=== PATIENT | male | born 1975 | race Two or more races ===

== ENCOUNTER 2025-08-11 19:24 | Emergency (ER) | payer OTHER ==
[~2025-08-11] VITALS: Ht 188 cm; Wt 113.4 kg
[2025-08-11] MEDS ORDERED: 0.9 % SODIUM CHLORIDE 1,000 ML IV SCH (21:00)
[2025-08-11] MEDS ORDERED: ACETAMINOPHEN 500 MG GEL..CAP PO ONE (21:00)
[2025-08-11] MEDS ORDERED: ORPHENADRINE CITRATE 30 MG/ML AMPUL IM ONE (21:00)
[2025-08-11] MEDS ORDERED: MORPHINE SULFATE 4 MG/ML CARTRIDGE IV ONE (21:15)
[2025-08-11] MEDS ORDERED: FAMOtidine 10 MG/ML (4ML VIAL) IV PUSH ONE (21:15)
[2025-08-11 21:55] LABS: BASO % 0.4 % (0.1-1.2); EOS # 0.03 (0.04-0.54); EOS % 0.2 % (0.7-7.0); LYMPH # 1.04 (1.18-3.74); LYMPH % 8.4 % (19.3-53.1); MEAN PLATELET VOLUME 11.70 fl (9.4-12.4); MONO # 0.80 (0.24-0.82); MONO % 6.5 % (4.7-12.5); NEUT # 10.39 (1.56-6.13); NEUT % 84.0 % (34.0-71.1); RED CELL DISTRIBUTION WIDTH 12.9 % (11.6-14.4)
[2025-08-11 22:15] LABS: INR 1.07
[2025-08-11 22:21] LABS: ALT/SGPT 18.0 U/L (12-78); AST/SGOT 17.0 U/L (15-37); BILIRUBIN TOTAL 0.35 mg/dL (0.3-1.2); BUN CREA RATIO 18.0 (7.0-25.0); CREATININE SERUM 1.01 mg/dL (0.70-1.30); GFR 78.51; GLOBULINA 3.6 G/DL (2.4-3.5); GLUCOSE FASTING 92.0 mg/dL (65-100); OSMOLALITY SERUM 290.0 MOSM/KG (275-295)
[2025-08-12] MEDS ORDERED: DIPHTH,PERTUSS(ACELL),TET VAC 0.5 ML SYRINGE IM STA (01:01)
== END 2025-08-12 01:19 | disposition home or self-care (01) ==
LOC: ER 19:24
PROVIDERS: General Practice
DX: S00.83XA Contusion of other part of head, initial encounter (principal); S30.0XXA Contusion of lower back and pelvis, initial encounter; S40.012A Contusion of left shoulder, initial encounter; S40.011A Contusion of right shoulder, initial encounter; W17.89XA Other fall from one level to another, initial encounter; Y93.89 Activity, other specified; Y92.018 Other place in single-family (private) house as the place of occurrence of the external cause; Y99.9 Unspecified external cause status